=== PATIENT | female | born 1965 | race Caucasian/White ===

== ENCOUNTER 2016-06-09 05:56 | Emergency (ER) | payer OTHER ==
[2016-06-09] MEDS ORDERED: LORazepam 2 MG/ML MDV ONE (06:15)
[2016-06-09] MEDS ORDERED: Atropine 0.1 MG/ML 10 ML Syringe IVPUSH ONE (06:18)
[2016-06-09] MEDS ORDERED: Amiodarone 300 MG in Dextrose 5% in Water 100 ML IV ONE ×2 (06:38)
[2016-06-09] MEDS ORDERED: Heparin Sodium 5,000 Units/ML Vial ONE (06:44)
[2016-06-09] MEDS ORDERED: Clopidogrel 75 MG Tab ONE (06:45)
[2016-06-09] MEDS ORDERED: Heparin Sodium 5,000 Units/ML Vial IVPUSH ONE (06:50)
[2016-06-09] MEDS ORDERED: Sodium Chloride 0.9% 1,000 ML IV SCH (06:55)
[2016-06-09] MEDS ORDERED: Heparin Sodium/D5W 500 ML ONE (06:56)
[2016-06-09 07:21] VITALS: BP 112/71
--- NOTE | 2016-06-09 07:23 | EDM.PDOC ---
ED HISTORY OF PRESENT ILLNESS - General Chief Complaint: Chest Pain Stated Complaint: [facility] Time Seen by Provider: 06/09/16 06:30 Source: Reports: Patient, EMS, Family History Limitations: Reports: Physical impairment - History of Present Illness INITIAL COMMENTS - FREE TEXT/NARRATIVE: This lady said she awoke at 5 AM with severe substernal chest pain. EMS was called. She received 324 mg aspirin chewed prior to arrival here. Because of the circumstances were not able to get a complete history on this lady. She's having a steady and has gone into V. fib 3 different times. It is known that she doesn't have a history of any kind of heart disease. 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 fib which limits the exam) General Appearance: alert (She is initially alert between her episodes of A. fib ), obese (She's very obese.) Eye Exam: bilateral eye: normal inspection Head: atraumatic Respiratory/Chest: lungs clear Cardiovascular: normal peripheral pulses (Radial pulses were normal), regular rate, rhythm GI/Abdominal: non tender (. Obese but nontender) Extremities: no pedal edema Neurological: alert, oriented, normal cognition Psychiatric: normal affect Skin Exam: Warm, Dry Course - Vital Signs Last Recorded V/S: Last Vital Signs Temp Pulse 93 06/09/16 07:03 Resp BP 103/69 06/09/16 07:03 Pulse Ox 99 06/09/16 07:03 - Orders/Labs/Meds Orders: Active Orders 24 hr Category Date Time Status COMPREHENSIVE METABOLIC PN,CMP [CHEM] Routine Lab 06/09/16 07:10 Received LACTIC ACID [CHEM] Routine Lab 06/09/16 07:10 Received TROPONIN I [CHEM] Routine Lab 06/09/16 07:10 Received Amiodarone [Cordarone] 450 mg Med 06/09/16 07:15 Active Dextrose 5% in Water 241 ml IV ASDIRECTED Medication Orders Amiodarone HCl 450 mg/ (Dextrose/Water) 250 mls @ 33.33 mls/hr IV ASDIRECTED PATRICIA; 1 MG/MIN PRN Reason: Protocol Labs: Laboratory Tests 06/09/16 Range/Units 07:10 WBC 17.1 H (4.5-11.0) K/uL RBC 5.26 (3.30-5.50) M/uL Hgb 15.8 H (12.0-15.0) g/dL Hct 47.2 (36.0-48.0) % MCV 90 (80-98) fL MCH 30 (27-31) pg MCHC 34 (32-36) % Plt Count 242 (150-400) K/uL Neut % (Auto) 51 (36-66) % Lymph % (Auto) 40 (24-44) % Martin % (Auto) 6 (2-6) % Eos % (Auto) 2 (2-4) % Baso % (Auto) 1 (0-1) % Meds: Medications Generic Name Dose Route Start Last Admin Trade Name Freq PRN Reason Stop Dose Admin Amiodarone HCl 450 mg/ 250 mls @ 33.33 mls/hr 06/09/16 07:15 Dextrose/Water IV ASDIRECTED PATRICIA Protocol 1 MG/MIN Discontinued Medications Generic Name Dose Route Start Last Admin Trade Name Freq PRN Reason Stop Dose Admin Clopidogrel Bisulfate Confirm 06/09/16 06:45 Plavix Administered 06/09/16 06:46 Dose 600 mg .ROUTE .STK-MED ONE Heparin Sodium (Porcine) Confirm 06/09/16 06:44 Heparin Sodium Administered 06/09/16 06:45 Dose 5,000 units .ROUTE .STK-MED ONE Amiodarone HCl 300 mg/ 106 mls @ 300 mls/hr 06/09/16 06:38 06/09/16 06:55 Dextrose/Water IV 06/09/16 06:59 300 mls/hr .BOLUS ONE Administration Protocol Amiodarone HCl/Dextrose Confirm 06/09/16 06:36 Nexterone In Dextrose 150 Mg/100 Ml Administered 06/09/16 06:37 Dose 100 mls @ as directed IV .STK-MED ONE Amiodarone HCl/Dextrose Confirm 06/09/16 06:55 Nexterone In Dextrose 150 Mg/100 Ml Administered 06/09/16 06:56 Dose 100 mls @ as directed IV .STK-MED ONE Heparin Sodium/Dextrose Confirm 06/09/16 06:56 Heparin 25,000 Units In D5w 500 Ml Administered 06/09/16 06:57 Dose 500 mls @ as directed .ROUTE .STK-MED ONE Lorazepam Confirm 06/09/16 06:15 06/09/16 07:07 Ativan Administered 06/09/16 06:16 Not Given Dose 2 mg .ROUTE .STK-MED ONE - Re-Assessments/Exams Free Text/Narrative Re-Assessment/Exam: 06/09/16 07:16 Initial EKG showed a sinus rhythm with typical " tombstones" in the anterior and lateral leads as well as lead 1. There are reciprocal changes. STEMI protocol was initiated however prior to initiating any medications she suddenly screamed, began jerking all over and eyes rolled back in her head. The monitor appeared to show artifact. The patient also said, " they're goes my head again." Then became unresponsive. It was determined that she was in the ventricular fibrillation and the AED was used, the patient shocked and returned to a sinus rhythm. She quickly became alert again with blood pressure and pulse. Initial call was made to [facility] in [place] because of bad weather we would send her to [place] instead. I did speak with the conference services coordinator station cashier. A bolus of amiodarone had already been ordered but had not been given yet. The conference services coordinator recommended 300 mg plus the usual Plavix and heparin. Prior to this she had another episode where she yelled out began jerking around and went into ventricular fibrillation again. He was shocked a single time and converted to sinus rhythm. We did manage to begin getting the amiodarone at that time. Another EKG shows the large ST elevations previously. EKG #2 adhesive just some beginning of reperfusion but the third EKG is identical to the first. We had some difficulty getting the amiodarone going because of the way it is package so she received lidocaine 100 mg IV. This was followed shortly by beginning of a 300 mg dose of amiodarone over 20 minutes. She was determined to be to stable for transport and is being loaded into the ambulance at the present time 7:20 AM Departure - Departure Time of Disposition: :23 Disposition: DC/Tfer to [facility] Reason for Transfer *Q: Primary PCI Indicated Condition: critical Clinical Impression: Acute myocardial infarction, Ventricular fibrillation seen on environmental monitoring technician Forms: ED Department Discharge - My Orders Last 24 Hours: My Active Orders 06/09/16 07:10 COMPREHENSIVE METABOLIC PN,CMP [CHEM] Routine LACTIC ACID [CHEM] Routine TROPONIN I [CHEM] Routine 06/09/16 07:15 Amiodarone [Cordarone] 450 mg Dextrose 5% in Water 241 ml IV ASDIRECTED - Assessment/Plan Last 24 Hours: My Active Orders 06/09/16 07:10 COMPREHENSIVE METABOLIC PN,CMP [CHEM] Routine LACTIC ACID [CHEM] Routine TROPONIN I [CHEM] Routine 06/09/16 07:15 Amiodarone [Cordarone] 450 mg Dextrose 5% in Water 241 ml IV ASDIRECTED
[2016-06-09] MEDS ORDERED: Clopidogrel 75 MG Tab PO ONE (07:50)
[2016-06-09] MEDS ORDERED: Lidocaine 2% 100 MG/5 ML Syringe IVPUSH ONE (08:00)
== END 2016-06-09 07:30 ==
LOC: JP.ED 05:56
DX: I21.3 ST elevation (STEMI) myocardial infarction of unspecified site (principal); I49.01 Ventricular fibrillation; F17.210 Nicotine dependence, cigarettes, uncomplicated; Z88.2 Allergy status to sulfonamides
CPT/HCPCS: 36415; 80053; 83605; 84484; 85025; 96374; 96375; 99285; J0282; J0461; J1644; 93005; A9270-GY; J7060